=== PATIENT | female | born 1990 | race Hispanic/Latino ===

== ENCOUNTER 2022-04-29 11:04 | Emergency (ER) | payer BC, MEDICAID, OTHER ==
[~2022-04-29] VITALS: Ht 154.9 cm; Wt 81.6 kg
[~2022-04-29 11:04] MED LIST: PREN-146 PO
[2022-04-29] MEDS ORDERED: LACTATED RINGERS 1000ML 1,000 ML IV ONE (11:30)
[2022-04-29] MEDS ORDERED: PANTOPRAZOLE 40 MG/VIAL IVP ONE (11:30)
[2022-04-29] MEDS ORDERED: ONDANSETRON 4MG INJ IVP ONE (11:30)
[2022-04-29 11:36] LABS: BASOPHILS % (AUTO) 0.4 % (0.0-5.0); EOSINOPHILS % (AUTO) 0.7 % (0.0-8.0); LYMPHOCYTES % (AUTO) 14.3 % (21.0-51.0); MEAN CORPUSCULAR HEMOGLOBIN 32.3 pg (27.0-33.0); MEAN CORPUSCULAR VOLUME 95.2 fL (79-99); MONOCYTES % (AUTO) 4.7 % (3.0-13.0); NEUTROPHILS % (AUTO) 79.5 % (40.0-77.0); PLATELET COUNT (AUTO) 309 K/uL (130-400); RED BLOOD CELL COUNT(AUTO) 5.57 MIL/uL (4.00-5.50); RED CELL DISTRIBUTION WIDTH 12.2 % (11.0-15.5); WHITE BLOOD COUNT (AUTO) 11.4 K/uL (4.8-10.8)
[2022-04-29 12:03] LABS: CREATININE 0.6 mg/dL (0.5-1.5)
[2022-04-29 12:07] LABS: ALBUMIN 3.8 g/dL (3.5-5.0); BILIRUBIN,TOTAL 0.4 mg/dL (0.2-1.0); TOTAL PROTEIN, SERUM 7.8 g/dL (6.0-8.3)
[2022-04-29] MEDS ORDERED: ESOM40CA PO ×2 (12:53→13:35)
[2022-04-29] MEDS ORDERED: ONDA4TAB10 PO ×2 (12:53→13:36)
[2022-04-29 13:26] VITALS: BP 154/92
== END 2022-04-29 13:48 | disposition home or self-care (01) ==
LOC: EDH 11:04
DX: K29.00 Acute gastritis without bleeding (principal)
CPT/HCPCS: 36415; 80053; 83690; 84703; 85025; 96361; 96374; 96375; 99284; C9113; J2405; J7030